=== PATIENT | female | born 2005 | race Asian ===

== ENCOUNTER 2024-06-22 20:21 | Emergency (ER) | payer MEDICAID ==
[~2024-06-22] VITALS: Ht 170.2 cm; Wt 54.5 kg
[2024-06-22 20:50] VITALS: BP 114/54; PULSE 70; RESP 17; TEMP 98.9; O2SAT 98
== END 2024-06-22 22:10 | disposition home or self-care (01) ==
LOC: EMS 20:21
DX: S83.92XA Sprain of unspecified site of left knee, initial encounter (principal); V43.52XA Car driver injured in collision with other type car in traffic accident, initial encounter; Y93.89 Activity, other specified; Y92.410 Unspecified street and highway as the place of occurrence of the external cause; Y99.8 Other external cause status
CPT/HCPCS: 99283